=== PATIENT | female | born 1945 | race Caucasian/White ===

== ENCOUNTER → 2024-06-06 14:48 | Outpatient (REF) | payer MEDICARE, OTHER, SELFPAY ==
[2024-06-06 16:17] LABS: Erythrocyte Sed Rate 21 mm/hour (0-20)
[2024-06-06 17:02] LABS: C-Reactive Protein < 5.00 mg/L (0.0-10.00)
== END ==
LOC: REG 14:48
PROVIDERS: ATTENDING PHYSICIAN Physician Assistant; FAMILY PHYSICIAN Family Medicine
DX: T84.84XA Pain due to internal orthopedic prosthetic devices, implants and grafts, initial encounter (principal); Z96.652 Presence of left artificial knee joint
CPT/HCPCS: 36415; 85652; 86140

== ENCOUNTER → 2025-03-28 13:30 | Outpatient (REF) | payer MEDICARE, OTHER, SELFPAY | LOC: PAVMRI 13:30 | PROVIDERS: ATTENDING PHYSICIAN Physician Assistant Surgical; FAMILY PHYSICIAN Family Medicine | DX: M54.12 Radiculopathy, cervical region (principal); M54.50 Low back pain, unspecified; Z98.1 Arthrodesis status; M54.2 Cervicalgia; M41.9 Scoliosis, unspecified | CPT/HCPCS: 72141; 72148 ==